=== PATIENT | male | born 1970 | race Caucasian/White ===

== ENCOUNTER 2016-12-02 08:21 | Emergency (ER) | payer BC, OTHER ==
[2016-12-02 08:57] VITALS: BP 145/84
--- NOTE | 2016-12-02 09:10 | UC ---
Throat Pain/Nasal Jamal HPI - HPI Summary HPI Summary: sore throat on /off for 1 week now has swollen gland on ear ache on right side, no fevers, kids with similar issues - History of Current Complaint Chief Complaint: UCGeneralIllness Stated Complaint: SORE THROAT EAR PAIN Time Seen by Provider: 12/02/16 08:52 Hx Obtained From: Patient Onset/Duration: Gradual Onset, Lasting Days, Still Present Severity: Moderate Pain Intensity: 5 - refused pain med Pain Scale Used: 0-10 Numeric Cough: Nonproductive - Allergies/Home Medications Allergies/Adverse Reactions: Allergies Allergy/AdvReac Type Severity Reaction Status Date / Time No Known Allergies Allergy Verified 12/02/16 08:52 PMH/Surg Hx/FS Hx/Imm Hx Previously Healthy: Yes - Surgical History Surgical History: Yes Surgery Procedure, Year, and Place: 1984-knee - Family History Known Family History: Positive: None - Social History Occupation: Employed Full-time - contractor Lives: With Family Alcohol Use: Rare Substance Use Type: None Smoking Status (MU): Light Every Day Tobacco Smoker Type: Cigars Household Exposure Type: Cigars Cessation Counseling: Patient Advised to Stop Review of Systems Constitutional: Negative Skin: Negative Eyes: Negative ENT: Sore Throat, Ear Ache - right Respiratory: Cough Cardiovascular: Negative Gastrointestinal: Negative Genitourinary: Negative Motor: Negative Neurovascular: Negative Musculoskeletal: Negative Neurological: Negative Psychological: Negative All Other Systems Reviewed And Are Negative: Yes Physical Exam Triage Information Reviewed: Yes Appearance: Well-Appearing, No Pain Distress, Well-Nourished Vital Signs: Initial Vital Signs Temp 98.6 F 12/02/16 08:53 Pulse 80 12/02/16 08:53 Resp 18 12/02/16 08:53 BP 145/84 12/02/16 08:53 Pulse Ox 99 12/02/16 08:53 Vital Signs Reviewed: Yes Eye Exam: Normal Eyes: Positive: Conjunctiva Clear ENT Exam: Normal ENT: Positive: Pharyngeal erythema, TMs normal. Negative: Nasal congestion, Nasal drainage, Tonsillar swelling, Tonsillar exudate, Trismus, Muffled/hoarse voice Dental Exam: Normal Neck exam: Normal Neck: Positive: Supple, Nontender, Enlarged Nodes @ - slight right anterior cervical Respiratory Exam: Normal Respiratory: Positive: Chest non-tender, Lungs clear, Normal breath sounds, No respiratory distress, No accessory muscle use Cardiovascular Exam: Normal Cardiovascular: Positive: RRR, No Murmur, Pulses Normal, Brisk Capillary Refill Abdominal Exam: Normal Abdomen Description: Positive: Nontender, No Organomegaly, Soft Bowel Sounds: Positive: Present Musculoskeletal Exam: Normal Musculoskeletal: Positive: Strength Intact, ROM Intact, No Edema Neurological Exam: Normal Neurological: Positive: Alert, Muscle Tone Normal Psychological Exam: Normal Skin Exam: Normal Diagnostics - Laboratory Diagnostic Studies Completed/Ordered: RST(-) Throat Pain/Nasal Course/Dx - Course Assessment/Plan: increase fluids , rst tylenol, ibuprofen Albuterol follow with pcp re-check prn - Differential Dx/Diagnosis Differential Diagnosis/HQI/PQRI: Laryngitis, Pharyngitis, Sinusitis, URI Provider Diagnoses: URI Discharge - Discharge Plan Condition: Stable Disposition: HOME Prescriptions: Albuterol HFA INHALER* [Ventolin HFA Inhaler*] 2 puff INH Q4H PRN #1 mdi PRN Reason: cough Patient Education Materials: Decongestant/Expectorant (By mouth), How to Use a Metered-Dose Inhaler (ED), Upper Respiratory Infection (ED), Viral Syndrome (ED) , Wheezing (ED) Referrals: Gurvinder Bailey MD [Primary Care Provider] - If Needed
== END 2016-12-02 09:59 | disposition home or self-care (01) ==
LOC: UCEAST 08:21
DX: J06.9 Acute upper respiratory infection, unspecified (principal); R03.0 Elevated blood-pressure reading, without diagnosis of hypertension; F17.210 Nicotine dependence, cigarettes, uncomplicated; Z71.6 Tobacco abuse counseling
CPT/HCPCS: 87651; 99212; G0463

== ENCOUNTER 2016-12-28 04:01 | Inpatient (IN) | payer BC ==
[2016-12-28] MEDS ORDERED: Ticagrelor* 90 MG TAB PO ONE (04:04)
[2016-12-28] MEDS ORDERED: Heparin for STEMI(*) 5,000 UNITS/ML 1 ML VIAL IV ONE (04:04)
[2016-12-28] MEDS ORDERED: Midazolam* 1 MG/ML 5 ML VIAL (5 MG) ONE (04:15)
[2016-12-28] MEDS ORDERED: Iohexol 350 (CONTRAST) 200 ML MDV IV ONE (04:15)
[2016-12-28] MEDS ORDERED: fentaNYL* 50 MCG/ML 2 ML VIAL (100 MCG VIAL) ONE (04:15)
[2016-12-28] MEDS ORDERED: nitroGLYCERIN DRIP* 250 ML ONE (04:15)
[2016-12-28] MEDS ORDERED: Heparin 2 UNITS/ML IVPREMIX* 2,000 ML IV ONE (04:15)
[2016-12-28] MEDS ORDERED: Lidocaine 1% INJ* 10 MG/ML 30 ML SDV ONE (04:15)
[2016-12-28 04:19] LABS: Hematocrit 47 % (42-52); Mean Corpuscular HGB Conc 34 g/dl (31-36); Mean Corpuscular Hemoglobin 30 pg (27-31); Mean Corpuscular Volume 88 fL (80-94); Mean Platelet Volume 7 um3 (7.4-10.4); Red Blood Count 5.34 10^6/ul (4.0-5.4); Red Cell Distribution Width 14 % (10.5-15); White Blood Count 15.1 10^3/ul (3.5-10.8)
[2016-12-28] MEDS ORDERED: Morphine INJ* 4 MG/ML 1 ML CARPUJECT ONE (04:19)
[2016-12-28 04:21] LABS: Add Diff/Slide Review? Slide Review Added; Comments Flag Yes
--- NOTE | 2016-12-28 04:25 | ED ---
Trever Brown Anna, scribed for Jesse Maciel MD on 12/28/16 at 0408 . HPI Chest Pain - HPI Summary HPI Summary: Patient is a male BIBA to [facility] presenting with sudden onset of constant, right , anterior chest pain that began this morning at 0315. The patient was sleeping when the pain woke him up. Upon arrival of EMS, patient was diaphoretic with some dyspnea. He expressed pain down his left arm and into his back. EMS administered 2 sublingual Nitroglycerin and 324 mg Aspirin. Initial BP upon EMS arrival was 154/104. NKDA. FHx CAD in mother and father, both around age 50. STEMI called at 0353. - History of Current Complaint Hx Obtained From: Patient Onset/Duration: Started Minutes Ago, Still Present Initial Severity: Moderate Current Severity: Moderate - Allergy/Home Medications Allergies/Adverse Reactions: Allergies Allergy/AdvReac Type Severity Reaction Status Date / Time No Known Allergies Allergy Verified 12/02/16 08:52 PMH/Surg Hx/FS Hx/Imm Hx Cardiovascular History: Reports: Hx Coronary Artery Disease - Surgical History Surgery Procedure, Year, and Place: 1983- - Family History Known Family History: Positive: Cardiac Disease - Social History Lives: With Family Alcohol Use: Rare Substance Use Type: Reports: None Smoking Status (MU): Light Every Day Tobacco Smoker Type: Cigars Review of Systems Positive: Skin Diaphoresis Positive: Chest Pain Positive: Other - dyspnea Positive: Myalgia - CP radiates to left arm, back All Other Systems Reviewed And Are Negative: Yes Physical Exam Triage Information Reviewed: Yes Vital Signs On Initial Exam: Temp Pulse Resp BP Pulse Ox 96.9 F 77 16 128/79 96 12/28/16 04:07 12/28/16 04:07 12/28/16 04:07 12/28/16 04:07 12/28/16 04:07 Vital Signs Reviewed: Yes Appearance: Positive: Well-Appearing, Pain Distress - mild discomfort Skin: Positive: Warm Eyes: Positive: [place] ENT: Positive: Hearing grossly normal Neck: Positive: Supple Respiratory/Lung Sounds: Positive: Clear to Auscultation, Breath Sounds Present Cardiovascular: Positive: RRR Abdomen Description: Positive: Nontender, Soft Bowel Sounds: Positive: Present Musculoskeletal: Positive: Strength/ROM Intact Neurological: Positive: Alert, Oriented to Person Place, Time, Normal Gait Psychiatric: Positive: Affect/Mood Appropriate Diagnostics - Vital Signs Vital Signs Temp Pulse Resp BP Pulse Ox 12/28/16 04:07 96.9 F 77 16 128/79 96 - Laboratory Lab Results: Lab Results 12/28/16 Range/Units 04:07 WBC 15.1 H (3.5-10.8) 10^3/ul RBC 5.34 (4.0-5.4) 10^6/ul Hgb 16.0 (14.0-18.0) g/dl Hct 47 (42-52) % MCV 88 (80-94) fL MCH 30 (27-31) pg MCHC 34 (31-36) g/dl RDW 14 (10.5-15) % Plt Count 311 (150-450) 10^3/ul MPV 7 L (7.4-10.4) um3 Neut % (Auto) 52.6 (38-83) % Lymph % (Auto) 34.2 (25-47) % [place] % (Auto) 8.5 (1-9) % Eos % (Auto) 4.6 (0-6) % Baso % (Auto) 0.1 (0-2) % Absolute Neuts (auto) 8.0 H (1.5-7.7) 10^3/ul Absolute Lymphs (auto) 5.2 H (1.0-4.8) 10^3/ul Absolute Monos (auto) 1.3 H (0-0.8) 10^3/ul Absolute Eos (auto) 0.7 H (0-0.6) 10^3/ul Absolute Basos (auto) 0 (0-0.2) 10^3/ul Absolute Nucleated RBC 0.02 10^3/ul Nucleated RBC % 0.1 Result Diagrams: 12/28/16 04:07 12/28/16 04:07 Lab Statement: Any lab studies that have been ordered have been reviewed, and results considered in the medical decision making process. - Radiology CXR Xray Interpretation: No Acute Changes Radiology Interpretation Completed By: ED Physician - EKG 0354 Cardiac Rate: NL - 73 bpm EKG Rhythm: Sinus Rhythm EKG Interpretation: ACUTE INFERIOR WALL NH, II, III, aVF Chest Pain Course/Dx - Course Assessment/Plan: Patient is a male BIBA to [facility] presenting with sudden onset of constant, right, anterior chest pain that began this morning at 0315. The patient was sleeping when the pain woke him up. Upon arrival of EMS, patient was diaphoretic with some dyspnea. He expressed pain down his left arm and into his back. EMS administered 2 sublingual Nitroglycerin and 324 mg Aspirin. Initial BP upon EMS arrival was 154/104. NKDA. FHx CAD in mother and father, both around age 50. STEMI called at 0353. CXR reveals no acute disease. Labs reveal troponin of .18, lactic acid of 2.1, WBC of 15.1. Patient admitted to [facility] under care of Dr. Holman. - Diagnoses Provider Diagnoses: STEMI (ST elevation myocardial infarction) During the Visit The Following Alert/Code Occurred: STEMI - Provider Notifications Instructed by Provider To: Admit As Inpatient - Critical Care Time Critical Care Time: 30-74 min Discharge - Discharge Plan Condition: Guarded Disposition: ADMITTED TO [facility] The documentation as recorded by the Trever browne Anna accurately reflects the service I personally performed and the decisions made by , Jesse Maciel MD.
[2016-12-28] MEDS ORDERED: Heparin VIAL(*) 5000 UNITS/ML VIAL (FIVE THOUSAND) ONE (04:26)
[2016-12-28 04:32] LABS: Albumin 3.9 g/dL (3.2-5.2); BUN/Creatinine Ratio 19.5 (8-20); Calcium 8.9 mg/dL (8.6-10.3); EGFR African American 138.7 (>60); EGFR Non-African American 107.8 (>60); Globulin 2.8 g/dL (2-4); Potassium 3.6 mmol/L (3.5-5.0); Total Bilirubin 0.4 mg/dL (0.2-1.0); Total Protein 6.7 g/dL (6.4-8.9)
[2016-12-28 04:40] LABS: Troponin I 0.18 ng/mL (<0.04)
[2016-12-28] MEDS ORDERED: Bivalirudin(*) 250 MG VIAL ONE (05:02)
[2016-12-28] MEDS ORDERED: Potassium Chloride LIQUID* 20 MEQ PACKET ONE (05:58)
[2016-12-28] MEDS ORDERED: Nitroglycerin TAB 0.4 MG* 0.4 MG TAB SL PRN (07:07)
[2016-12-28] MEDS ORDERED: Zolpidem TAB* 5 MG PO PRN (07:07)
[2016-12-28] MEDS ORDERED: oxyCODONE/Acetamin 5/325 MG* TAB PO PRN (07:07)
[2016-12-28] MEDS ORDERED: Ondansetron INJ* 2 MG/ML VIAL IV PRN (07:07)
[2016-12-28] MEDS ORDERED: fentaNYL* 50 MCG/ML 2 ML VIAL (100 MCG VIAL) IV PRN (07:07)
[2016-12-28] MEDS ORDERED: Acetaminophen TAB* 325 MG PO PRN (07:07)
[2016-12-28] MEDS ORDERED: Docusate CAP* 100 MG PO PRN (07:07)
[2016-12-28] MEDS ORDERED: NS 0.9% 1000 ML* 1,000 ML IV SCH (07:15)
--- NOTE | 2016-12-28 07:40 | RAD ---
INDICATION: Chest pain. COMPARISON: There are no prior studies available for comparison. TECHNIQUE: A portable view of the chest was obtained. FINDINGS: Cardiac and mediastinal contours appear to be within normal limits. The lungs are clear. No pleural effusion is seen. IMPRESSION: NO EVIDENCE FOR ACUTE DISEASE.
[2016-12-28] MEDS: Atorvastatin* 80 MG TAB PO SCH ×2 (08:08→20:56)
[2016-12-28] MEDS: Aspirin Low Dose CHEW TAB* 81 MG PO SCH (08:08)
[2016-12-28 08:30] LABS: Hematocrit 46 % (42-52); Hemoglobin 15.6 g/dl (14.0-18.0); Mean Corpuscular HGB Conc 34 g/dl (31-36); Mean Corpuscular Hemoglobin 30 pg (27-31); Mean Corpuscular Volume 88 fL (80-94); Mean Platelet Volume 7 um3 (7.4-10.4); Red Blood Count 5.23 10^6/ul (4.0-5.4); Red Cell Distribution Width 14 % (10.5-15); White Blood Count 19.6 10^3/ul (3.5-10.8)
[2016-12-28 08:45] LABS: Albumin 3.9 g/dL (3.2-5.2); BUN/Creatinine Ratio 19.4 (8-20); Calcium 9.2 mg/dL (8.6-10.3); EGFR African American 149.8 (>60); EGFR Non-African American 116.5 (>60); Globulin 2.8 g/dL (2-4); HDL Cholesterol 25.7 mg/dL; Potassium 4.3 mmol/L (3.5-5.0); Total Bilirubin 0.4 mg/dL (0.2-1.0); Total Protein 6.7 g/dL (6.4-8.9)
[2016-12-28] MEDS ORDERED: Metoprolol Tartrate TAB* 25 MG PO SCH ×2 (09:00)
[2016-12-28 11:22] LABS: Troponin I > 85.00 ng/mL (<0.04)
[2016-12-28 11:34] LABS: Creatine Kinase 3183 U/L (10-223)
--- NOTE | 2016-12-28 12:27 | HP ---
ADMISSION HISTORY AND PHYSICAL: DATE OF ADMISSION: 12/28/16 CHIEF COMPLAINT: Chest discomfort with ST segment elevation inferoposterior wall myocardial infarction. HISTORY OF PRESENT ILLNESS: The patient is a 46-year-old white male with no prior known history of coronary artery disease. He was in his usual state of health until and woke up at 2:30 in the morning with chest discomfort going up towards his arms. Mild diaphoresis. He woke his at 3 o' clock, they called EMS and when EMS came they performed an EKG, which demonstrated an acute ST segment elevation inferior posterior wall myocardial infarction. A STEMI alert was called. On arrival in the emergency room, he was still having active symptoms. He received 6000 units of heparin in addition to 180 mg of Brilinta and already received full dose aspirin. The risks and benefits were explained and he wished to proceed emergently to cardiovascular laboratory for acute intervention. Coronary risk factors included negative history of hypertension, negative diabetes, no increased history of cholesterol. He does smoke. ALLERGIES: No known allergies. FAMILY HISTORY: He has a family history significant for coronary artery disease with both mother and father who had it early in life and succumbed to it. REVIEW OF SYSTEMS: Pertinent to proceeding to cardiovascular laboratory. No history of hematochezia, hematemesis, or hematuria. No history of TIA or stroke. No history of dye allergy or renal insufficiency. PHYSICAL EXAMINATION VITAL SIGNS: When I saw him revealed blood pressure 128/79, pulse 77, temperature 96.9, respirations 16, O2 saturation 96%. NECK: Supple. No increased JVP. Carotid without bruit. HEENT: Conjunctivae are pink. Sclerae are clear. Mouth revealed moist mucosa. LUNGS: Reveal no accessory muscle usage. There was good excursion. Lungs were clear to A and P. HEART: Revealed no visible heaves, no palpable heaves or thrills. Normal S1, S2 with no S3 or S4 gallop. No significant systolic or diastolic murmur. ABDOMEN: Soft, nontender without organomegaly. EXTREMITIES: Without clubbing, cyanosis, or avril pitting edema. NEUROLOGIC: The patient is alert and oriented with normal mentation. MUSCULOSKELETAL: The patient is with normal gait. PSYCHIATRIC: The patient is with normal affect. LABORATORY DATA: Electrocardiogram revealed ST segment elevation inferiorly with reciprocal changes and ST segment depression anteriorly. The only laboratory results back were hemoglobin of 11, hematocrit of 47, white count 15, 000, platelets 311,000. All other labs were pending at the time of proceeding to the cardiovascular laboratory. OVERALL ASSESSMENT: The patient presents with an inferoposterior ST segment elevation myocardial infarction. He has already received heparin, Brilinta, and aspirin therapy. We will take him emergently to the cardiovascular lab and adjust management pending results. CC: Dr. Gurvinder Bailey * [id number]/[facility] #: [id number] MTDD
[2016-12-28] MEDS: Nicotine PATCH 14 MG/24 HR* PATCH TRANSDERM SCH (13:22)
[2016-12-28] MEDS: Metoprolol Tartrate TAB* 25 MG PO SCH ×2 (13:22→20:56)
[2016-12-28] MEDS: Ticagrelor* 90 MG TAB PO SCH (15:40)
[2016-12-28 17:08] LABS: Troponin I > 85.00 ng/mL (<0.04)
[2016-12-28] MEDS ORDERED: Al Hydrox/Mg Hydrox/Simet LIQ* 30 ML UDC PO PRN (17:34)
[2016-12-28] MEDS: Omeprazole CAP* 20 MG PO SCH (17:56)
[2016-12-28 19:10] LABS: Creatine Kinase 2273 U/L (10-223)
[2016-12-28] MEDS: Nicotine Patch Removal NOTE PATCH OFF SCH (21:27)
--- NOTE | 2016-12-28 23:50 | CATH ---
CARDIAC CATHETERIZATION AND INTERVENTIONAL REPORT: DATE OF PROCEDURE: 12/28/16 - ROOM #ICU-06 INDICATION FOR PROCEDURE: The patient with acute ST-segment elevation inferior posterior wall myocardial infarction. PROCEDURE: Coronary arteriography, primary stenting of the proximal circumflex and mid circumflex area utilizing a 4.0 x 24 mm long Synergy drug-eluting stent overlapped in the midportion to distal portion with a 4.0 x 28 mm long Synergy drug-eluting stent postdilated to 4.2 mm, left heart catheterization, left ventriculography. DESCRIPTION OF PROCEDURE: The patient was interviewed and examined in the emergency room where the risks and benefits were explained. He understood and wished to proceed. He was brought to the cardiovascular laboratory where a formal time-out was performed. The patient was prepped and draped in a sterile fashion. Right groin area was incised with 1% lidocaine. The right femoral artery was cannulated, and a 6.5 curve Merit Prelude sheath was placed. Coronary arteriography was performed using a 5-Congolese 4-Ann-Marie left coronary catheter and a 5-Congolese 4-Ann-Marie right coronary catheter. Of note, an ACT was checked and found to be subtherapeutic and as such, the patient received an Angiomax bolus and Angiomax drip was started. Guiding views were obtained with a 6- Congolese VL4 curve guide catheter. An All Star wire was advanced down the circumflex artery. Primary stenting was performed utilizing a 4.0 x 24 mm long Synergy drug-eluting stent. Following this, a Pronto V4 extraction catheter was utilized to perform thrombectomy. The distal stent, 4.0 x 28 mm long Synergy drug-eluting stent, was deployed and post deployment inflations were made to the whole length of stenting area utilizing a 4.0 x 15 mm long balloon inflated to high pressures. Following this, views were obtained in multiple angles. After this, central aortic pressure was recorded using an angled pigtail catheter advanced the ascending aorta. The catheter was then passed across the aortic valve into the left ventricle where left ventricular pressure was recorded. Left ventriculography was performed using a total of 24 cc of Omnipaque dye at a rate of 12 cc per second. The catheter was then pulled back across the aortic valve to recheck gradient. At the end of the case, an injection was made into the right femoral sheath to assess the eligibility to utilize a vascular closure device and as such, it was acceptable for this and a /7 Congolese Mynx closure device was deployed with good hemostasis. The total contrast used was 200 cc of Omnipaque dye. The radiation exposure included 11.6 minutes of fluoro time. The air kerma radiation was 2085 milligray. The DAP radiation was 12,532 microgray per sq. m. RESULTS: HEMODYNAMIC DATA: Left heart catheterization - central aortic pressure was recorded at 94/53 with a mean of 74, left ventricular pressure 90 over left ventricular end- diastolic pressure of 16. LEFT VENTRICULOGRAPHY: Performed in the DONIS projection revealed mild global left ventricular hypokinesis, overall EF appeared to be low normal range of 50%. CORONARY ARTERIOGRAPHY: A. Left coronary artery: 1. Left main - no significant stenosis seen. 2. Left anterior descending artery - left anterior descending artery had mild 10% to 15% narrowing proximally. The midportion of the vessel had a 70% to 75% lesion in its midportion. The rest of the LAD had mild luminal irregularities, but no critical stenosis. 3. Circumflex artery - totally occluded in its proximal portion. On reconstitution, it supplied several thin first, second, and third obtuse marginal branches with moderate-sized trifurcating low-lying obtuse marginal branch supplying the low posterolateral inferior apical wall. INTERVENTION INTO PROXIMAL AND MID CIRCUMFLEX: Successful reconstitution of 100% occluded proximal circumflex with stenting of the proximal segment with a 4.0 x 24 mm long Synergy drug-eluting stent overlapped distally with a 4.0 x 28 mm long Synergy drug-eluting stent postdilated to high pressures, obtaining LUKE-III flow, no dissection seen, and less than 5% residual stenosis. OVERALL ASSESSMENT: Interruption of acute inferior posterior wall myocardial infarction with totally occluded circumflex with stenting of both proximal and mid segment as defined. Of note, there is still residual disease involving the mid LAD with a 70% to 75% lesion. This will be addressed at a later time for consideration of ischemic burden from this lesion. Aggressive risk factor management with high- dose statin therapy in addition to beta zac and aspirin and Brilinta therapy will be pursued. Smoking cessation is paramount to his further cardiac care. CC: Dr. Gurvinder Bailey * [id number]/[facility] #: [id number] [facility] MEDICAL CENTERYaima
[2016-12-28 23:55] LABS: Troponin I 60.92 ng/mL (<0.04)
[2016-12-29 06:14] LABS: Hematocrit 48 % (42-52); Hemoglobin 16.1 g/dl (14.0-18.0); Mean Corpuscular HGB Conc 34 g/dl (31-36); Mean Corpuscular Hemoglobin 30 pg (27-31); Mean Corpuscular Volume 87 fL (80-94); Mean Platelet Volume 7 um3 (7.4-10.4); Red Blood Count 5.45 10^6/ul (4.0-5.4); Red Cell Distribution Width 14 % (10.5-15)
[2016-12-29 06:16] LABS: Add Diff/Slide Review? Slide Review Added
[2016-12-29 06:43] LABS: Albumin 3.9 g/dL (3.2-5.2); BUN/Creatinine Ratio 13.5 (8-20); Calcium 9.3 mg/dL (8.6-10.3); EGFR African American 145.2 (>60); EGFR Non-African American 112.9 (>60); Globulin 2.9 g/dL (2-4); Potassium 3.9 mmol/L (3.5-5.0); Total Bilirubin 0.7 mg/dL (0.2-1.0); Total Protein 6.8 g/dL (6.4-8.9)
[2016-12-29] MEDS: Ticagrelor* 90 MG TAB PO SCH ×2 (07:34→16:19)
[2016-12-29] MEDS: Metoprolol Tartrate TAB* 25 MG PO SCH ×2 (09:05→14:10)
[2016-12-29] MEDS: Omeprazole CAP* 20 MG PO SCH (09:05)
[2016-12-29] MEDS: Nicotine PATCH 14 MG/24 HR* PATCH TRANSDERM SCH (09:05)
[2016-12-29] MEDS: Aspirin Low Dose CHEW TAB* 81 MG PO SCH (09:05)
--- NOTE | 2016-12-29 11:59 | ECHO ---
Patient: JASON BANUELOS [facility] Rec#: [id number] : 1970 Date: 12/29/2016 Age: 46y Height: 182.9 cm / 72.0 in Weight: 104.3 kg / 229.9 lbs Sex: M BSA: 2.3 Room#: ICU 6 Admit Date#: 12/28/2016 Type: Inpatient Referring: Edmundo Holman MD Reading: Phil Hoskins MD Hogshead Mat Assembler: Ayana Allen RN RDCS CC: Gurvinder Bailey MD Transthoracic Echocardiogram Indication: STEMI, S/P PCI BP: 109/74 HR: 63 Rhythm: NSR Findings History: Smoker Technical Comments: The study is technically limited due to patient body habitus. The study is technically limited due to the patient's smoking history. Completed at 0920. Left Ventricle: The left ventricular chamber size is normal. There is no left ventricular hypertrophy. There are multiple regional wall motion abnormalities. There is moderately decreased left ventricular systolic function. The estimated ejection fraction is 35-40%. Abnormal left ventricular diastolic filling is observed, consistent with impaired relaxation. The mid inferolateral, mid inferior, and apical inferior wall segments are hypokinetic (score 2). The apical septal wall segment is akinetic (score 3). Overall wallmotion score index is 2.00 Left Atrium: The left atrium is slightly dilated. Right Ventricle: The right ventricular cavity size is normal. The right ventricular global systolic function is mildly reduced. Right Atrium: The right atrium is slightly dilated. Aortic Valve: The aortic valve is trileaflet. The aortic valve leaflets are mildly thickened. There is a trace of aortic regurgitation. There is no evidence of aortic stenosis. Mitral Valve: Mild mitral annular calcification present. The mitral valve leaflets are mildly thickened. There is a trace of mitral regurgitation. There is no evidence of mitral stenosis. Tricuspid Valve: The tricuspid valve leaflets are normal. There is trace tricuspid regurgitation. Unable to estimate the right ventricular systolic pressure. Pulmonic Valve: The pulmonic valve appears normal. There is a trace pulmonic regurgitation. There is no pulmonic stenosis. Pericardium: There is no significant pericardial effusion. A pericardial fat pad is visualized. Aorta: There is no dilatation of the ascending aorta. There is no dilatation of the aortic arch. There is no dilation of the aortic root. Pulmonary Artery: The main pulmonary artery appears normal. Venous: The inferior vena cava appears normal in size. There is a greater than 50% respiratory change in the inferior vena cava dimension. Conclusions There is moderately decreased left ventricular systolic function. The estimated ejection fraction is 35-40%. The mid inferolateral, mid inferior, and apical inferior wall segments are hypokinetic (score 2). The apical septal wall segment is akinetic (score 3). The right ventricular global systolic function is mildly reduced. There is a trace of aortic regurgitation. There is a trace of mitral regurgitation. There is trace tricuspid regurgitation. Unable to estimate the right ventricular systolic pressure. There is no significant pericardial effusion. There is no dilatation of the ascending aorta. Measurements Name Value Normal Range RVDdMajor (2D) 3.1 cm (2.2 - 4.4) RAd ISD 4CH 5.3 cm (3.4 - 4.9) RA (A4C)W 3.4 cm (2.9 - 4.6) IVSd (2D) 0.9 cm (0.6 - 1) LVPWd (2D) 0.9 cm (0.6 - 1) LVIDd (2D) 5.2 cm (3.6 - 5.4) LVIDs (2D) 4.1 cm - LV FS (2D) 21 % (25 - 45) Aortic Annulus 2.4 cm (1.4 - 2.6) Ao root diameter (2D) 3.5 cm (2.1 - 3.5) Ascending Ao 3.4 cm (2.1 - 3.4) Aortic arch 2.9 cm (1.8 - 3.4) LA dimension (AP) 2D 3.7 cm (2.3 - 3.8) LAd ISD 4CH 5.4 cm (2.9 - 5.3) LA ISD 4CH W 3.5 cm (2.5 - 4.5) Name Value Normal Range LA ESV SP 4CH (A/L) 25 ml - LA ESV SP 2CH (A/L) 33 ml - LA ESV BP (A/L) 32 ml - LA ESV BP (A/L) index 14 ml/m2 - LA ESV SP 4CH (MOD) 24 ml - LA ESV SP 2CH (MOD) 31 ml - Name Value Normal Range MV E-wave Vmax 0.62 m/sec - MV deceleration time 240 msec - MV A-wave Vmax 1.1 m/sec - MV E:A ratio 0.6 ratio - LV septal e' Vmax 0.07 m/sec - LV lateral e' Vmax 0.1 m/sec - LV E:e' septal ratio 8.9 ratio - LV E:e' lateral ratio 6.2 ratio - Name Value Normal Range AV Vmax 1.3 m/sec - AV VTI 25.6 cm - AV peak gradient 7 mmHg - AV mean gradient 4 mmHg - LVOT Vmax 1.1 m/sec - LVOT VTI 19.8 cm - ILA Vmax 0.51 m/sec - Name Value Normal Range IVC diameter 1.4 cm - Name Value Normal Range PV Vmax 0.86 m/sec - Wallmotion BAS Not Seen BA Not Seen BAL Not Seen CHRISTIAN Not Seen BI Not Seen BIS Not Seen MAS Not Seen MA Not Seen MAL Not Seen MIL Hypokinetic PR Hypokinetic MIS Not Seen Akinetic AA Not Seen AL Normal AI Hypokinetic APEX Not Seen
[2016-12-29] MEDS: Captopril TAB* 12.5 MG PO SCH ×2 (16:19→21:25)
[2016-12-29] MEDS ORDERED: Captopril TAB* 12.5 MG PO SCH (21:00)
[2016-12-29] MEDS: Metoprolol Tartrate TAB* 50 mg PO SCH (21:23)
[2016-12-29] MEDS: Atorvastatin* 80 MG TAB PO SCH (21:23)
[2016-12-29] MEDS: Nicotine Patch Removal NOTE PATCH OFF SCH (21:26)
[2016-12-30] MEDS: Ticagrelor* 90 MG TAB PO SCH ×2 (06:31→17:23)
[2016-12-30] MEDS: Captopril TAB* 12.5 MG PO SCH ×3 (10:13→21:46)
[2016-12-30] MEDS: Metoprolol Tartrate TAB* 50 mg PO SCH ×2 (10:13→21:45)
[2016-12-30] MEDS: Omeprazole CAP* 20 MG PO SCH (10:13)
[2016-12-30] MEDS: Aspirin Low Dose CHEW TAB* 81 MG PO SCH (10:13)
[2016-12-30] MEDS: Nicotine PATCH 14 MG/24 HR* PATCH TRANSDERM SCH (10:14)
[2016-12-30] MEDS: Atorvastatin* 80 MG TAB PO SCH (21:45)
[2016-12-30] MEDS: Nicotine Patch Removal NOTE PATCH OFF SCH (21:48)
[2016-12-31] MEDS: Ticagrelor* 90 MG TAB PO SCH (06:24)
[2016-12-31 07:41] VITALS: BP 107/73
[2016-12-31] MEDS ORDERED: Lisinopril TAB* 10 MG PO SCH (09:00)
[2016-12-31] MEDS ORDERED: Metoprolol Succinate XL TAB* 100 MG PO SCH (09:00)
[2016-12-31] MEDS: Omeprazole CAP* 20 MG PO SCH (09:16)
[2016-12-31] MEDS: Aspirin Low Dose CHEW TAB* 81 MG PO SCH (09:16)
[2016-12-31] MEDS: Nicotine PATCH 14 MG/24 HR* PATCH TRANSDERM SCH (09:17)
[2016-12-31] MEDS ORDERED: CMC:Prasugrel (NF) 10 MG PO SCH (11:00)
--- NOTE | 2017-01-01 01:01 | DS ---
DISCHARGE SUMMARY: DATE OF ADMISSION: 12/28/16 DATE OF DISCHARGE: 12/31/16 DISCHARGE DIAGNOSES: 1. Inferior ST-elevation infarct. 2. Hyperglycemia. 3. Family history of premature coronary disease. 4. Tobacco use. 5. Hyperlipidemia. CONDITION ON DISCHARGE: Stable. PROCEDURES: Cardiac cath, stent placement, Dr. Holman, 12/28/16, proximal circumflex 4.0 x 24 Synergy drug-eluting stent, distal 4.0 x 28 Synergy drug- eluting stent. Echocardiogram. DISCHARGE MEDICATIONS: 1. Aspirin 81 mg daily. 2. Lipitor 80 mg daily. 3. Lisinopril 10 mg daily. 4. Toprol-XL 100 mg daily. 5. Nitroglycerin 0.4 sublingual p.r.n. 6. Effient 10 mg daily. FOLLOWUP: Dr. Smith next week, to establish primary care with Dr. Varela's office including followup of hypoglycemia. DISCHARGE INSTRUCTIONS: No strenuous exertion for 3 days, to walk 30 minutes daily. Do not smoke. Wound care shower only for 3 days. HISTORY: See H and P. DIAGNOSTIC STUDIES/LAB DATA: CBC on the remained stable with a white count of 16,000, hemoglobin 16.1. Chemistries post PCR remained stable with a creatinine of 0.74 on December 29, normal electrolytes. His fasting blood sugars were elevated in the 120 to 130s. Hemoglobin A1c was elevated at 6.5. There is a family history of diabetes, but not a previous diagnosis of diabetes. His total CPK peaked at 3183, MB peaked at greater than 298, troponin peaked at greater than 85 consistent with a moderate-sized infarct. Cholesterol was 186, triglycerides 154, LDL 130, HDL 25.7 on no statin. His BNP was normal at 15. EKG, post revascularization, has remained stable, on December 30 showed QS in aVF , very minimal fraction of a millimeter ST elevation in II with terminal T-wave inversion in the inferior leads, and minimal right precordial J point and ST depression with somewhat slow R wave progression. He had T-wave inversion in V6. All consistent with post infarct EKG changes. Echo, 12/29/16, reported EF of 35% to 40% with mid inferior, inferolateral, and apical inferior hypokinesis. HOSPITAL COURSE: He presented with acute inferior wall ST-elevation infarct, underwent catheterization by Dr. Holman. See his report for details. He received two drug-eluting stents in the circumflex. LV gram showed low normal in the 50s. He had no significant left main, had moderate mid LAD stenosis, which will be followed as an outpatient with a stress test, and occlusion of the circumflex proximally. Post PCI, he had a LUKE-3 flow. Subsequent to revascularization, he gradually ambulated, has not had arrhythmias, heart failure, or recurrence of angina. There were no groin complications. He is tolerating beta blockade, after load reduction, dual-antiplatelet therapy, as well as high-dose statin. He received full discharge instructions including cardiac rehab. The plan is for an outpatient stress test to assess his LAD, functional significance during his convalescence. He was noted to have elevated fasting sugars as well as elevated hemoglobin A1c, he will follow that with Dr. Varela's office after he establishes. CC: Dr. Jaya Smith; Dr. Varela* [id number]/CPS #: [id number] MTDD
--- NOTE | 2017-03-04 11:51 | CATH ---
CC: Dr. Gurvinder Bailey; Dr. Jaya Smith CARDIAC CATH REPORT: DATE OF PROCEDURE: 12/28/16 ADDENDUM: Of note, the right coronary artery was not commented on, on the prior report, although it was visualized. The right coronary artery was a right dominant vessel supplying the PDA and thin p osterior left ventricular branches. 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 No critical lesions were noted throughout the v essel. [id number]/[facility] #: [id number]
== END 2016-12-31 13:04 | disposition home or self-care (01) | DRG 174 ==
LOC: ED 04:01 → CHICATH 04:28 → ICU 05:51 → SSU 12-29 17:10 → MEDTELE 12-29 17:12
PROVIDERS: ADMIT Internal Medicine Cardiovascular Disease; ATTEND Internal Medicine Cardiovascular Disease
PROC: 027035Z Dilation of Coronary Artery, One Artery with Two Drug-eluting Intraluminal Devices, Percutaneous Approach (ICD-10-PCS; principal; 2016-12-28)
PROC: B2111ZZ Fluoroscopy of Multiple Coronary Arteries using Low Osmolar Contrast (ICD-10-PCS; 2016-12-28)
PROC: B2151ZZ Fluoroscopy of Left Heart using Low Osmolar Contrast (ICD-10-PCS; 2016-12-28)
PROC: 4A023N7 Measurement of Cardiac Sampling and Pressure, Left Heart, Percutaneous Approach (ICD-10-PCS; 2016-12-28)
PROC: 02C03ZZ Extirpation of Matter from Coronary Artery, One Artery, Percutaneous Approach (ICD-10-PCS; 2016-12-28)
PROC: 3E03317 Introduction of Other Thrombolytic into Peripheral Vein, Percutaneous Approach (ICD-10-PCS; 2016-12-28)
DX: I21.11 ST elevation (STEMI) myocardial infarction involving right coronary artery (principal); E78.5 Hyperlipidemia, unspecified; I25.10 Atherosclerotic heart disease of native coronary artery without angina pectoris; F17.210 Nicotine dependence, cigarettes, uncomplicated; R73.9 Hyperglycemia, unspecified; Z82.49 Family history of ischemic heart disease and other diseases of the circulatory system; Z72.89 Other problems related to lifestyle; Z79.82 Long term (current) use of aspirin; Z79.01 Long term (current) use of anticoagulants
CPT/HCPCS: 36415; 71010; 80053; 80061; 82550; 82553; 83036; 83605; 83721; 83874; 83880; 84484; 85025; 85610; 85730; 86850; 86900; 86901; 87641; 93005; 93306; 99406; A9270-GY; C1725; C1757; C1760; C1769; C1876; C1887; C9606-LC; J0583; J1644; J2250; J2270; J3010

== ENCOUNTER 2018-10-19 09:40 | Emergency (ER) | payer BC ==
[2018-10-19 10:16] LABS: ABS Basophils 0.1 10^3/ul (0-0.2); ABS Eosinophils 0.4 10^3/ul (0-0.6); ABS Lymphocytes 2.5 10^3/ul (1.0-4.8); ABS Neutrophils 7.8 10^3/ul (1.5-7.7); ABS Nucleated RBC 0 10^3/ul; Eosinophil % 3.1 %; Hematocrit 48 % (42-52); Hemoglobin 15.9 g/dl (14.0-18.0); Lymphocyte % 21.1 %; Mean Corpuscular HGB Conc 33 g/dl (31-36); Mean Corpuscular Hemoglobin 31 pg (27-31); Mean Corpuscular Volume 92 fL (80-94); Nucleated Red Blood Cells % 0.2; Platelet Count 284 10^3/ul (150-450); Red Blood Count 5.18 10^6/ul (4.00-5.40); Red Cell Distribution Width 14 % (10.5-15); White Blood Count 11.7 10^3/ul (3.5-10.8)
--- NOTE | 2018-10-19 10:22 | ED ---
HPI Chest Pain - HPI Summary HPI Summary: Patient presents with right-sided chest pain which started 5 days ago. He reports he was performing laborous activity the day before with overhead reaching and lifting. Noticed pain in the morning at the base of the right pack and discomfort between his shoulder blades. This was worse with palpation as well as arm movements. Pain also seemed to be worse with lying, better with standing and being up moving around. He denies shortness of breath, diaphoresis , jaw pain, arm pain/numbness/tingling, abdominal pain, nausea, vomiting, fatigue, swelling into extremities. He has not tried anything for this pain until this morningtook nitroglycerin 40 minutes ago. This may be helping as he has less pain with lying at this point in time. Denies side effects such as headache and admits she's never taken nitroglycerin before. History of MD with CAD and stent placement. He takes a beta zac, statin, anticoagulant plus aspirin and lisinopril. No issues since. Follows up with broadband engineer annually. Last stress test was over a year ago. He denies recent reports of fatigue, dyspnea on exertion or difficulty completing tasks as usual. He is quite active in his daily life with chores, etc. Continues to smoke cigars daily. ETOH rare. Illicit drug use - none. Reports he didn't come in right away becuase this doesn't feel like previous cardiac sx and didn't think it was cardiac related - thought it was SHAUNA d/t activities and sx. - History of Current Complaint Chief Complaint: EDChestPainROMI Time Seen by Provider: 10/19/18 10:04 Hx Obtained From: Patient, Family/Double Needle Stitcher - Pain Intensity: 5 - Additional Pertinent History Primary Care Physician: [id number] - Allergy/Home Medications Allergies/Adverse Reactions: Allergies Allergy/AdvReac Type Severity Reaction Status Date / Time No Known Allergies Allergy Verified 12/02/16 08:52 PMH/Surg Hx/FS Hx/Imm Hx Previously Healthy: Yes Endocrine/Hematology History: Reports: Hx Anticoagulant Therapy Denies: Hx Diabetes, Hx Thyroid Disease Cardiovascular History: Reports: Hx Angina, Hx Coronary Artery Disease - stent placed, Hx Hypercholesterolemia, Hx Hypertension, Hx Myocardial Infarction Denies: Hx Valvular Heart Disease Respiratory History: Denies: Hx Asthma, Hx Chronic Obstructive Pulmonary Disease (COPD) GI History: Denies: Hx Gastroesophageal Reflux Disease Musculoskeletal History: Denies: Hx Arthritis - Surgical History Surgery Procedure, Year, and Place: 1983-knee Hx Anesthesia Reactions: No - Immunization History Date of Tetanus Vaccine: unk Date of Influenza Vaccine: unk Infectious Disease History: No Infectious Disease History: Denies: Traveled Outside the [place] in Last 30 Days - Family History Known Family History: Positive: Cardiac Disease - family cardiac in 50's - Social History Lives: With Family Alcohol Use: Rare Hx Substance Use: No Substance Use Type: Reports: None Hx Tobacco Use: Yes Smoking Status (MU): Current Every Day Smoker - cigars Type: Cigars Review of Systems Constitutional: Negative Negative: Fever, Chills, Fatigue Eyes: Negative ENT: Negative Positive: Chest Pain. Negative: Palpitations Respiratory: Negative Gastrointestinal: Negative Positive: no symptoms reported Positive: Myalgia Skin: Negative Neurological: Negative Psychological: Normal All Other Systems Reviewed And Are Negative: Yes Physical Exam Triage Information Reviewed: Yes Vital Signs On Initial Exam: Initial Vitals Temp Pulse Resp BP Pulse Ox 97.5 F 70 18 126/74 95 10/19/18 09:49 10/19/18 09:49 10/19/18 09:49 10/19/18 09:49 10/19/18 09:49 Vital Signs Reviewed: Yes Appearance: Positive: Well-Appearing, No Pain Distress, Well-Nourished Skin: Positive: Warm, Skin Color Reflects Adequate Perfusion, Dry - no erythema , no ecchymosis, no lesions over affected area Head/Face: Positive: Normal Head/Face Inspection Eyes: Positive: Normal, EOMI, Conjunctiva Clear ENT: Positive: Normal ENT inspection, Hearing grossly normal, Pharynx normal Neck: Positive: Supple, Nontender Respiratory/Lung Sounds: Positive: Clear to Auscultation, Breath Sounds Present. Negative: Rales, Rhonchi, Wheezes Cardiovascular: Positive: Normal, RRR, S1, S2. Negative: Murmur, Rub, Leg Edema Left, Leg Edema Right Abdomen Description: Positive: No Organomegaly, Soft, Other: - tender across upper abdomen at junction of diaphragm Bowel Sounds: Positive: Present Musculoskeletal: Positive: Strength/ROM Intact, Pain @ - Rt inferior pectoralis border and paraspinal mm in thoracic region are TTP Neurological: Positive: Normal, Sensory/Motor Intact, Alert, Oriented to Person Place, Time, CN Intact II-III Psychiatric: Positive: Normal - concerned but calm, polite, pleasant Diagnostics - Vital Signs Vital Signs Temp Pulse Resp BP Pulse Ox 10/19/18 09:49 97.5 F 70 18 126/74 95 - Laboratory Lab Results: Lab Results 10/19/18 Range/Units 10:01 WBC 11.7 H (3.5-10.8) 10^3/ul RBC 5.18 (4.00-5.40) 10^6/ul Hgb 15.9 (14.0-18.0) g/dl Hct 48 (42-52) % MCV 92 (80-94) fL MCH 31 (27-31) pg MCHC 33 (31-36) g/dl RDW 14 (10.5-15) % Plt Count 284 (150-450) 10^3/ul MPV 7.0 L (7.4-10.4) fL Neut % (Auto) 66.7 % Lymph % (Auto) 21.1 % Gem % (Auto) 8.5 % Eos % (Auto) 3.1 % Baso % (Auto) 0.6 % Absolute Neuts (auto) 7.8 H (1.5-7.7) 10^3/ul Absolute Lymphs (auto) 2.5 (1.0-4.8) 10^3/ul Absolute Monos (auto) 1.0 H (0-0.8) 10^3/ul Absolute Eos (auto) 0.4 (0-0.6) 10^3/ul Absolute Basos (auto) 0.1 (0-0.2) 10^3/ul Absolute Nucleated RBC 0 10^3/ul Nucleated RBC % 0.2 Result Diagrams: 10/19/18 10:01 10/19/18 10:01 Lab Statement: Any lab studies that have been ordered have been reviewed, and results considered in the medical decision making process. Chest Pain Course/Dx - Course Course Of Treatment: Pt presents w/ Rt sided chest pain x 5 days - initially felt this was SHAUNA but wanted to come in and get checked out as he has h/o MD. Last stress test > 1 year ago - follows w/ cardiology anually. Labs, ECG, CXR all w/o acute findings. Trops (-) x 2 - no cardiac sx while here and vitals stable. Discussed importance of smoking cessation and pt in contemplative state of quitting. Agrees to f/u w/ PCP and is now aware of multiple techniques adn approaches to quitting. Also strongly recommended outpt stress test LETY - he will call cardiology today to arrange as he is established here at [facility]. Discussed continuing meds and to retunr to ED if danger s/sx present. Pt agrees w/ plan. Suspect SHAUNA soreness from recnt activities - provided with supportive care for pain relief as well - Diagnoses Provider Diagnoses: Right-sided chest wall pain Discharge - Sign-Out/Discharge Documenting (check all that apply): Patient Departure - Discharge Plan Condition: Stable Disposition: HOME Patient Education Materials: Chest Pain (ED) Referrals: Lainey aHrrington MD [Primary Care Provider] - Phil Hoskins MD [Medical Doctor] - Additional Instructions: Continue medications as directed Follow-up with cardiology this week - call today to schedule stress test Avoid stressful activities, exertion, stimulants until seen by cardiology *If chest pain returns or other danger signs/symptoms present (ie. shortness of breath, nausea, vomiting, sweating, arm/jaw pain, fatigue, etc) return to the ED To alleviate muscle pain, try heat in the morning with gentle streches and ice after use. You may also take acetaminophen as needed for pain. - Billing Disposition and Condition Condition: STABLE Disposition: Home
[2018-10-19 10:23] LABS: Activated Partial Thrombo Time 31.3 seconds (26.0-36.3); INR 0.88 (0.77-1.02)
[2018-10-19 10:35] LABS: Albumin 4.3 g/dL (3.2-5.2); Albumin/Globulin Ratio 1.6 (1-3); BUN/Creatinine Ratio 20.6 (8-20); Calcium 9.4 mg/dL (8.6-10.3); EGFR Non-African American 123.4 (>60); Globulin 2.7 g/dL (2-4); Potassium 4.1 mmol/L (3.5-5.0); Total Bilirubin 0.5 mg/dL (0.2-1.0)
[2018-10-19 10:39] LABS: Myoglobin 25.7 ng/mL (17.4-105.7)
[2018-10-19 10:59] LABS: TSH (Thyroid Stimulating Horm) 2.43 mcIU/mL (0.34-5.60)
[2018-10-19 14:41] VITALS: BP 110/82
== END 2018-10-19 14:52 | disposition home or self-care (01) ==
LOC: ED 09:40
DX: R07.89 Other chest pain (principal); I25.10 Atherosclerotic heart disease of native coronary artery without angina pectoris; Z95.5 Presence of coronary angioplasty implant and graft; Z79.01 Long term (current) use of anticoagulants; Z82.49 Family history of ischemic heart disease and other diseases of the circulatory system; F17.290 Nicotine dependence, other tobacco product, uncomplicated
CPT/HCPCS: 36415; 71045; 80053; 82550; 82553; 83605; 83874; 83880; 84436; 84443; 84484; 85025; 85379; 85610; 85730; 93005; 99283

== ENCOUNTER 2019-08-11 18:36 | Emergency (ER) | payer OTHER ==
--- OUTSIDE RECORDS SUMMARY | 2019-08-11 18:43 | XMS REPORT | Continuity of Care Document ---
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 Problems Active Problems Provider Date Acute myocardial infarction of Jaya Smith MD, [facility], Onset: 02/04/2017 inferolateral wall [facility] Old myocardial infarction Jaya Smith MD, [facility], Onset: 10/28/2017 [facility] Not interested in stopping smoking Jaya Smith MD, [facility], Onset: 2017 [facility] Social History Type Date Description Comments Sex Unknown ETOH Use Denies alcohol use Recreational Drug Use Denies Drug Use Tobacco Use Start: Unknown End: Patient is a former smoker Unknown Smoking Status Reviewed: 08/03/19 Patient is a former smoker Exercise Type/Frequency Exercises regularly Allergies, Adverse Reactions, Alerts Description No Known Drug Allergies Medications Active Medications SIG Qnty Indications Ordering Provider Date Lisinopril 1 by mouth 90tabs I50.22 Jaya Smith, 02/04/2017 20mg Tablets every day HAILEY TEE, [facility] Atorvastatin Calcium 1/2 by mouth 90tabs Deb Hart, 12/31/2016 80mg every day M.D. Tablets Metoprolol Succinate ER 1 by mouth 90tabs Deb Hart, 12/31/2016 every day M.D. 100mg Tablets ER 24HR Nitroglycerin 1 sl q5mins x3 30tabs Jaya Smith, 12/31/2016 0.4mg Tablets as needed for HAILEY TEE, [facility] Sub chest pain Aspirin Ec 1 by mouth Unknown 81mg Tablets DR every day Spironolactone 1 by mouth Unknown 25mg Tablets every day Furosemide 1 by mouth Unknown 20mg Tablets every day Fluoxetine HCL (PMDD) 1 by mouth Unknown 20mg every day Capsules Carvedilol 1 by mouth Unknown 3.125mg Tablets twice a day Medications Administered in Office Medication SIG Qnty Indications Ordering Provider Date Depomedrol 40MG Fred Browning, 02/19/2010 Injection R.S.A.-O Immunizations Description No Information Available Vital Signs Date Vital Result Comment 08/03/2019 8:18am Height 71 inches 5'11" Weight 213.00 lb Heart Rate 58 /min BP Systolic Sitting 120 mmHg BP Diastolic Sitting 86 mmHg O2 % BldC Oximetry 98 % BMI (Body Mass Index) 29.7 kg/m2 09/05/2018 3:46pm Height 71 inches 5'11" Weight 220.00 lb with shoes Heart Rate 78 /min BP Systolic Sitting 110 mmHg lue reg cuff BP Diastolic Sitting 70 mmHg lue reg cuff BP Systolic Standing 114 mmHg lue reg cuff BP Diastolic Standing 70 mmHg lue reg cuff BMI (Body Mass Index) 30.7 kg/m2 Ejection Fraction 55% echo. 05/18/2017 Procedures Description No Information Available Medical Devices Description No Information Available Encounters Description No Information Available Assessments Date Code Description Provider 08/03/2019 R06.02 Shortness of breath Tia Lea MD 08/03/2019 G47.9 Sleep disorder, unspecified Tia Lea MD 08/03/2019 Z87.891 Personal history of nicotine dependence Tia Lea MD 08/03/2019 Z12.2 Encounter for screening for malignant neoplasm Tia Lea MD of respiratory organs Plan of Treatment Future Appointment(s):09/14/2019 9:00 am - [facility]La MD at [facility]08/03/2019 - Tia Lea MDR06.02 Shortness of breathNew Labs:Alpha 1 Antitrypsin A1a, Ordered: 08/03/19New Orders:PFTW/ Spirometry Vol Pre/Post Bronchdilat Dlco Complete, Ordered: 08/03/19G47.9 Sleep disorder, unspecifiedNew Orders:Sleep Study, Ordered: 08/03/19Z87.891 Personal history of nicotine ubdojovijlD92.2 Encounter for screening for malignant neoplasm of respiratory organsNew Xrays:CT Lung Screening-Low Dose, Ordered: 08/12 Functional Status Description No Information Available Mental Status Description No Information Available Referrals Description No Information Available
--- OUTSIDE RECORDS SUMMARY | 2019-08-11 18:43 | XMS REPORT | Continuity of Care Document ---
:1970 External Reference #:[id number] Author Name Dmitriy Wesley M.D. Address [address] [place] [address] Problems Active Problems Provider Date Essential hypertension Dmitriy Wesley M.D. Onset: 01/19/2019 Social History Type Date Description Comments Sex Unknown ETOH Use Denies alcohol use Tobacco Use Start: Unknown End: Unknown Patient is a former smoker Recreational Drug Use Denies Drug Use Allergies, Adverse Reactions, Alerts Description No Known Drug Allergies Medications Active Medications SIG Qnty Indications Ordering Provider Date Azithromycin 1 by mouth every 7tabs J20.9 Dmitriy Wesley, 06/23/2019 500mg day M.D. Tablets Prednisone 3 tab by mouth 18tabs J20.9 Dmitriy Wesley, 06/23/2019 20mg Tablets daily 3 days, M.D. then 2 tab daily x 3 d , then 1 tab daily 3d Physical Therapy X pain L shoulder M25.512 Dmitriy Wesley, 01/31/2019 6-8 WKS M.D. Aspirin Low Dose take 1 tablet by I25.10 Unknown 81mg mouth once daily Tablets Prasugrel HCL take 1 tablet by I25.10 Unknown 10mg mouth daily Tablets Carvedilol 1 tab by mouth 60tabs I25.10 Unknown 3.125mg twice a Tablets day-cardiology I10 Atorvastatin Calcium 1 by mouth every day 90tabs I25.10 Unknown 80mg Tablets E78.2 Lisinopril take 1 tablet by mouth once I10 Unknown 2.5mg Tablets daily I25.[address] 1 tablet I25.10 Unknown 0.4mg Tablets under the tongue Sub every 5 minutes if needed for chest pain Gabapentin 1 cap by mouth 90caps M15.9 Dmitriy Wesley, 100mg Capsules three times a day M.D. M25.512 I67.89 History Medications Amoxicillin 2 by mouth 40tabs J20.9 Dmitriy Wesley, 06/20/2019 - 500mg twice a day M.D. 06/23/2019 Tablets Immunizations Description No Information Available Vital Signs Date Vital Result Comment 06/23/2019 9:26am BP Systolic 128 mmHg BP Diastolic 88 mmHg Height 72 inches 6'0" Weight 217.00 lb BMI (Body Mass Index) 29.4 kg/m2 Heart Rate 72 /min Body Temperature 96.8 F Respiratory Rate 16 /min 06/20/2019 12:59pm BP Systolic 118 mmHg BP Diastolic 68 mmHg Height 72 inches 6'0" Weight 217.00 lb BMI (Body Mass Index) 29.4 kg/m2 Heart Rate 67 /min Body Temperature 96.3 F Respiratory Rate 16 /min Results Test Date Facility Test Result H/L Range Note CBC With Diff 01/31/2019 [facility] WBC 9.7 10*3/uL (4.1-11.0) [address] (607)- - RBC 5.05 10*6/uL (4.60-6.10) HGB 15.3 g/dL (13.5-18.0) HCT 46.4 % (41.0-53.0) MCV 91.9 fL (80.0-95.0) MCH 30.2 pg (27.0-32.0) MCHC 32.9 g/dL (32.0-36.0) RDW 14.7 % High (10.5-14.5) PLT 264 10*3/uL (150-450) MPV 7.4 fL (7.1-10.7) Neut % 68.7 % (35.0-75.0) Lymph % 21.9 % (16.0-52.0) [place] % 6.4 % (0.0-8.0) Eos % 2.4 % (0.0-5.0) Baso % 0.6 % (0.0-4.0) Neut # 6.6 10*3/uL (1.8-7.7) Lymph # 2.1 10*3/uL (1.2-4.8) [place] # 0.6 10*3/uL (0.0-0.8) Eos # 0.2 10*3/uL (0.0-0.5) Baso # 0.1 10*3/uL (0.0-0.2) CMP 01/31/2019 [facility] Sodium 141 mmol/L (136-145) [address] (022)- - Potassium 3.9 mmol/L (3.6-5.2) Chloride 103 mmol/L (100-108) Co2 29 mmol/L (22-31) Anion Gap 9 mmol/L (7-16) Urea Nitrogen 14 mg/dL (7-24) Creatinine 0.70 mg/dL Low (0.80-1.30) BUN/Creat Ratio 20.0 RATIO (10.0-20.0) Glucose 123 mg/dL High (70-99) Calcium 8.9 mg/dL (8.4-10.2) Total Protein 7.0 g/dL (6.4-8.2) Albumin 4.1 g/dL (3.5-4.6) Globulin 2.9 g/dL (2.7-4.3) Alb/Glob Ratio 1.4 RATIO Alkaline Phosphatase 78 U/L (45-117) Bilirubin,Total 0.6 mg/dL (0.0-1.0) Ast (Sgot) 13 U/L (11-39) Alt (SGPT) 27 U/L (12-78) GFR >60 ml/min/1.73m2 (>59) GFR ( Amer) >60 ml/min/1.73m2 (>59) GFR Interpretation <SEE NOTE> 1 Hemoglobin A1c 01/31/2019 [facility] Hemoglobin A1c @ 5.8 % (4.0-6.0) 2 [address] (949)- - Est Average Glucose 120 mg/dL Laboratory test 01/31/2019 [facility] CRP, Sensitive @ 0.9 mg/L 3 finding [address] (615)- - Lipid 01/31/2019 [facility] Cholesterol @ 120 mg/dL (0-200) [address] (061)- - Triglyceride @ 178 mg/dL (30-200) HDL Cholesterol @ 36 mg/dL Low (>40) 4 Chol/HDL Ratio 3.3 RATIO 5 LDL Chol (Calc) 48 mg/dL (<130) 6 Laboratory 01/31/2019 [facility] TSH,Ultrasensitive @ 2.220 (0.360- 4.170) test finding [address] mIU/L (607)- - 1 NORMAL KIDNEY FUNCTION OR MILD DISEASE - GFR >OR= 60 CHRONIC KIDNEY DISEASE - GFR 15 - 59 RENAL FAILURE - GFR <15 Est. GFR calculation based on the MDRD study equation, which assumes a steady state for creatinine. Est. GFR should not be used for medication dosing. 2 Performed using [employer] immunoassay. Care must be taken when interpreting HbA1c results in patients with a hemoglobin variant or decreased erythrocyte lifespan. Values 5.7 - 6.4% suggest prediabetes. Values >=6.5% are diagnostic for diabetes. REFERENCE: DIABETES CARE 2018: 41(S13-S27). 3 RELATIVE RISK CATEGORY AND AVERAGE hs-CRP LEVEL: LOW RISK < 1.0 MG/L AVERAGE RISK 1.0 to 3.0 MG/L HIGH RISK > 3.0 MG/L 4 PER NCEP ATP III GUIDELINES: RESULTS LOWER THAN 40 MG/DL ARE SUGGESTIVE OF INCREASED RISK FOR CORONARY ARTERY DISEASE. RESULTS > OR = TO 60 MG/DL ARE CONSIDERED A NEGATIVE RISK FACTOR. 5 INTERPRETATION OF CHOL-HDL RATIO CHD RISK FEMALE MALE VERY HIGH >8.3 >14.3 HIGH 5.6- 8.3 6.7- 14.3 AVERAGE 3.7- 5.6 4.0- 6.7 BELOW AVERAGE 2.5- 3.7 2.7- 4.0 PROTECTED <2.5 <2.7 6 PER NCEP ATP III GUIDELINES: OPTIMAL < 100 NEAR OPTIMAL 100 - 129 BORDERLINE HIGH 130 - 159 HIGH 160 - 189 VERY HIGH > 189 Procedures Date Code Description Status 06/20/2019 31556 Spirometry Completed 06/20/2019 06103 Tympanometry Completed 01/19/2019 43246 EKG Completed Medical Devices Description No Information Available Encounters Type Date Location Provider Dx Diagnosis Office Visit 06/23/2019 [facility] Dmitriy Wesley, I25.10 [facility] M.D. disease of [place] coronary artery w/o ang pctrs E78.2 Mixed hyperlipidemia I10 Essential (primary) hypertension E11.65 Type 2 diabetes mellitus with hyperglycemia M25.512 Pain in left shoulder M15.9 Polyosteoarthritis, unspecified I67.89 Other cerebrovascular disease J30.9 Allergic rhinitis, unspecified L20.9 Atopic dermatitis, unspecified N40.1 Benign prostatic hyperplasia with lower urinary tract symp J44.9 Chronic obstructive pulmonary disease, unspecified F17.211 Nicotine dependence, cigarettes, in remission R26.81 Unsteadiness on feet F70 Mild intellectual disabilities H54.7 Unspecified visual loss M75.112 Incomplete rotatr-cuff tear/ruptr of l shoulder, not trauma J20.9 Acute bronchitis, unspecified R09.81 Nasal congestion R05 Cough H92.03 Otalgia, bilateral Office Visit 06/20/2019 1:00p [facility] Dmitriy Wesley, I25.10 [facility] [place] disease of [place] coronary artery w/o ang pctrs E78.2 Mixed hyperlipidemia I10 Essential (primary) hypertension E11.65 Type 2 diabetes mellitus with hyperglycemia M25.512 Pain in left shoulder M15.9 Polyosteoarthritis, unspecified I67.89 Other cerebrovascular disease J30.9 Allergic rhinitis, unspecified L20.9 Atopic dermatitis, unspecified N40.1 Benign prostatic hyperplasia with lower urinary tract symp J44.9 Chronic obstructive pulmonary disease, unspecified F17.211 Nicotine dependence, cigarettes, in remission R26.81 Unsteadiness on feet F70 Mild intellectual disabilities H54.7 Unspecified visual loss M75.112 Incomplete rotatr-cuff tear/ruptr of l shoulder, not trauma J20.9 Acute bronchitis, unspecified R09.81 Nasal congestion R05 Cough H92.03 Otalgia, bilateral Office Visit 02/21/2019 8:45a [facility] Dmitriy Wesley, [facility]25.10 [facility] [place] disease of [place] coronary artery w/o ang pctrs E78.2 Mixed hyperlipidemia I10 Essential (primary) hypertension E11.65 Type 2 diabetes mellitus with hyperglycemia M25.512 Pain in left shoulder M15.9 Polyosteoarthritis, unspecified I67.89 Other cerebrovascular disease J30.9 Allergic rhinitis, unspecified L20.9 Atopic dermatitis, unspecified N40.1 Benign prostatic hyperplasia with lower urinary tract symp J44.9 Chronic obstructive pulmonary disease, unspecified F17.211 Nicotine dependence, cigarettes, in remission R26.81 Unsteadiness on feet F70 Mild intellectual disabilities H54.7 Unspecified visual loss M75.112 Incomplete rotatr-cuff tear/ruptr of l shoulder, not trauma Office Visit 01/31/2019 8:30a [facility] Dmitriy Wesley I25.10 [facility] [place] disease of [place] coronary artery w/o [facility] pctrs E78.2 Mixed hyperlipidemia I10 Essential (primary) hypertension E11.65 Type 2 diabetes mellitus with hyperglycemia M25.512 Pain in left shoulder M15.9 Polyosteoarthritis, unspecified I67.89 Other cerebrovascular disease J30.9 Allergic rhinitis, unspecified L20.9 Atopic dermatitis, unspecified N40.1 Benign prostatic hyperplasia with lower urinary tract symp J44.9 Chronic obstructive pulmonary disease, unspecified F17.211 Nicotine dependence, cigarettes, in remission R26.81 Unsteadiness on feet F70 Mild intellectual disabilities H54.7 Unspecified visual loss Office Visit 01/19/2019 10:00a [facility] Dmitriy Wesley Z00.01 Encounter for [facility] exam w abnormal findings I25.10 [facility] disease of [place] coronary artery w/o [facility] pctrs E78.2 Mixed hyperlipidemia I10 Essential (primary) hypertension E11.65 Type 2 diabetes mellitus with hyperglycemia M25.512 Pain in left shoulder M15.9 Polyosteoarthritis, unspecified I67.89 Other cerebrovascular disease J30.9 Allergic rhinitis, unspecified L20.9 Atopic dermatitis, unspecified N40.1 Benign prostatic hyperplasia with lower urinary tract symp J44.9 Chronic obstructive pulmonary disease, unspecified F17.211 Nicotine dependence, cigarettes, in remission R26.81 Unsteadiness on feet F70 Mild intellectual disabilities H54.7 Unspecified visual loss Assessments Date Code Description Provider 06/23/2019 I25.10 Atherosclerotic heart disease of [place] Dmitriy Wesley M.D. coronary artery with 06/23/2019 E78.2 Mixed hyperlipidemia Dmitriy Wesley M.D. 06/23/2019 I10 Essential (primary) hypertension Dmitriy Wesley M.D. 06/23/2019 E11.65 Type 2 diabetes mellitus with hyperglycemia Dmitriy Wesley M.D. 06/23/2019 M25.512 Pain in left shoulder Dmitriy Wesley M.D. 06/23/2019 M15.9 Polyosteoarthritis, unspecified Dmitriy Wesley M.D. 06/23/2019 I67.89 Other cerebrovascular disease Dmitriy Wesley M.D. 06/23/2019 J30.9 Allergic rhinitis, unspecified Dmitriy Wesley M.D. 06/23/2019 L20.9 Atopic dermatitis, unspecified Dmitriy Wesley M.D. 06/23/2019 N40.1 Benign prostatic hyperplasia with lower Dmitriy Wesley M.D. urinary tract sympto 06/23/2019 J44.9 Chronic obstructive pulmonary disease, Dmitriy Wesley M.D. unspecified 06/23/2019 F17.211 Nicotine dependence, cigarettes, in Dmitriy Wesley M.D. remission 06/23/2019 R26.81 Unsteadiness on feet Dmitriy Wesley M.D. 06/23/2019 F70 Mild intellectual disabilities Dmitriy Wesley M.D. 06/23/2019 H54.7 Unspecified visual loss Dmitriy Wesley M.D. 06/23/2019 M75.112 Incomplete rotator cuff tear or rupture of Dmitriy Wesley M.D. left shoulder, no 06/23/2019 J20.9 Acute bronchitis, unspecified Dmitriy Wesley M.D. 06/23/2019 R09.81 Nasal congestion Dmitriy Wesley M.D. 06/23/2019 R05 Cough Dmitriy Wesley M.D. 06/23/2019 H92.03 Otalgia, bilateral Dmitriy Wesley M.D. 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 coronary artery with 06/20/2019 E78.2 Mixed hyperlipidemia Dmitriy Wesley M.D. 06/20/2019 I10 Essential (primary) hypertension Dmitriy Wesley M.D. 06/20/2019 E11.65 Type 2 diabetes mellitus with hyperglycemia Dmitriy Wesley M.D. 06/20/2019 M25.512 Pain in left shoulder Dmitriy Wesley M.D. 06/20/2019 M15.9 Polyosteoarthritis, unspecified Dmitriy Wesley M.D. 06/20/2019 I67.89 Other cerebrovascular disease Dmitriy Wesley M.D. 06/20/2019 J30.9 Allergic rhinitis, unspecified Dmitriy Wesley M.D. 06/20/2019 L20.9 Atopic dermatitis, unspecified Dmitriy Wesley M.D. 06/20/2019 N40.1 Benign prostatic hyperplasia with lower Dmitriy Wesley M.D. urinary tract sympto 06/20/2019 J44.9 Chronic obstructive pulmonary disease, Dmitriy Wesley M.D. unspecified 06/20/2019 F17.211 Nicotine dependence, cigarettes, in Dmitriy Wesley M.D. remission 06/20/2019 R26.81 Unsteadiness on feet Dmitriy Wesley M.D. 06/20/2019 F70 Mild intellectual disabilities Dmitriy Wesley M.D. 06/20/2019 H54.7 Unspecified visual loss Dmitriy Wesley M.D. 06/20/2019 M75.112 Incomplete rotator cuff tear or rupture of Dmitriy Wesley M.D. left shoulder, no 06/20/2019 J20.9 Acute bronchitis, unspecified Dmitriy Wesley M.D. 06/20/2019 R09.81 Nasal congestion Dmitriy Wesley M.D. 06/20/2019 R05 Cough Dmitriy Wesley M.D. 06/20/2019 H92.03 Otalgia, bilateral Dmitriy Wesley M.D. 02/21/2019 I25.10 Atherosclerotic heart disease of [place] Dmitriy Wesley M.D. coronary artery with 02/21/2019 E78.2 Mixed hyperlipidemia Dmitriy Wesley M.D. 02/21/2019 I10 Essential (primary) hypertension Dmitriy Wesley M.D. 02/21/2019 E11.65 Type 2 diabetes mellitus with hyperglycemia Dmitriy Wesley M.D. 02/21/2019 M25.512 Pain in left shoulder Dmitriy Wesley M.D. 02/21/2019 M15.9 Polyosteoarthritis, unspecified Dmitriy Wesley M.D. 02/21/2019 I67.89 Other cerebrovascular disease Dmitriy Wesley M.D. 02/21/2019 J30.9 Allergic rhinitis, unspecified Dmitriy Wesley M.D. 02/21/2019 L20.9 Atopic dermatitis, unspecified Dmitriy Wesley M.D. 02/21/2019 N40.1 Benign prostatic hyperplasia with lower Dmitriy Wesley M.D. urinary tract sympto 02/21/2019 J44.9 Chronic obstructive pulmonary disease, Dmitriy Wesley M.D. unspecified 02/21/2019 F17.211 Nicotine dependence, cigarettes, in Dmitriy Wesley M.D. remission 02/21/2019 R26.81 Unsteadiness on feet Dmitriy Wesley M.D. 02/21/2019 F70 Mild intellectual disabilities Dmitriy Wesley M.D. 02/21/2019 H54.7 Unspecified visual loss Dmitriy Wesley M.D. 02/21/2019 M75.112 Incomplete rotator cuff tear or rupture of Dmitriy Wesley M.D. left shoulder, no 01/31/2019 I25.10 Atherosclerotic heart disease of [place] Dmitriy Wesley M.D. coronary artery with 01/31/2019 E78.2 Mixed hyperlipidemia Dmitriy Wesley M.D. 01/31/2019 I10 Essential (primary) hypertension Dmitriy Wesley M.D. 01/31/2019 E11.65 Type 2 diabetes mellitus with hyperglycemia Dmitriy Wesley M.D. 01/31/2019 M25.512 Pain in left shoulder Dmitriy Wesley M.D. 01/31/2019 M15.9 Polyosteoarthritis, unspecified Dmitriy Wesley M.D. 01/31/2019 I67.89 Other cerebrovascular disease Dmitriy Wesley M.D. 01/31/2019 J30.9 Allergic rhinitis, unspecified Dmitriy Wesley M.D. 01/31/2019 L20.9 Atopic dermatitis, unspecified Dmitriy Wesley M.D. 01/31/2019 N40.1 Benign prostatic hyperplasia with lower Dmitriy Wesley M.D. urinary tract sympto 01/31/2019 J44.9 Chronic obstructive pulmonary disease, Dmitriy Wesley M.D. unspecified 01/31/2019 F17.211 Nicotine dependence, cigarettes, in Dmitriy Wesley M.D. remission 01/31/2019 R26.81 Unsteadiness on feet Dmitriy Wesley M.D. 01/31/2019 F70 Mild intellectual disabilities Dmitriy Wesley M.D. 01/31/2019 H54.7 Unspecified visual loss Dmitriy Wesley M.D. 01/19/2019 Z00.01 Encounter for general adult medical Dmitriy Wesley M.D. examination with abnorma 01/19/2019 I25.10 Atherosclerotic heart disease of [place] Dmitriy Wesley M.D. coronary artery with 01/19/2019 E78.2 Mixed hyperlipidemia Dmitriy Wesley M.D. 01/19/2019 I10 Essential (primary) hypertension Dmitriy Wesley M.D. 01/19/2019 E11.65 Type 2 diabetes mellitus with hyperglycemia Dmitriy Wesley M.D. 01/19/2019 M25.512 Pain in left shoulder Dmitriy Wesley M.D. 01/19/2019 M15.9 Polyosteoarthritis, unspecified Dmitriy Wesley M.D. 01/19/2019 I67.89 Other cerebrovascular disease Dmitriy Wesley M.D. 01/19/2019 J30.9 Allergic rhinitis, unspecified Dmitriy Wesley M.D. 01/19/2019 L20.9 Atopic dermatitis, unspecified Dmitriy Wesley M.D. 01/19/2019 N40.1 Benign prostatic hyperplasia with lower Dmitriy Wesley M.D. urinary tract sympto 01/19/2019 J44.9 Chronic obstructive pulmonary disease, Dmitriy Wesley M.D. unspecified 01/19/2019 F17.211 Nicotine dependence, cigarettes, in Dmitriy Wesley M.D. remission 01/19/2019 R26.81 Unsteadiness on feet Dmitriy Wesley M.D. 01/19/2019 F70 Mild intellectual disabilities Dmitriy Wesley M.D. 01/19/2019 H54.7 Unspecified visual loss Dmitriy Wesley M.D. Plan of Treatment 06/23/2019 - Dmitriy Wesley M.D.I25.10 Atherosclerotic heart disease of [place] coronary artery withComments:F/U WITH CARDIOLOGY CONTINUE WITH RX AND F/ U LABE78.2 Mixed hyperlipidemiaComments:DIET REVIEWED CONTINUE DIETWT LOSSF/U LAB FBWI10 Essential (primary) hypertensionComments:CHECK BP TIW ( PRN)DIET AND FLUID COUNSELING LOW SODIUM DIETWT LOSSF/U LABE11.65 Type 2 diabetes mellitus with hyperglycemiaComments:DIET REVIEWED CONTINUE DIETWT LOSSFS qAC AND HS PRN F /U FBWM25.512 Pain in left shoulderComments:EXERCISE/HEAT /MESSAGE AVOID HEAVY LIFTINGTYLENOL OR MOTRIN PRNM15.9 Polyosteoarthritis, unspecifiedComments: EXERCISE/HEAT/MESSAGETYLENOL OR MOTRIN PRNAVOID HEAVY LIFTINGWT LOSSI67.89 Other cerebrovascular diseaseComments:STABLE F/U WITH NEUROLOGY PRNJ30.9 Allergic rhinitis, unspecifiedComments:INCREASE PO FLUID USE ANTIHISTAMINE PRN SECOND HAND SMOKING FQZGLDISTG39.9 Atopic dermatitis, unspecifiedComments:SKIN CARE INSTRUCTIONS EUCERIN CREAM OR BABY OIL 2-3 APPLICATION PER DAYUSE MOISTURIZING SOAPAVOID PROLONGED WATER EXPOSUREAVOID USING HOT WATER IN BIBENML60.1 Benign prostatic hyperplasia with lower urinary tract symptoComments :OWWYXCEK68.9 Chronic obstructive pulmonary disease, unspecifiedComments: INCREASE PO UCSSGDOFGR82.211 Nicotine dependence, cigarettes, in remissionComments:ENCOURAGED TO CONTINUE WITH SMOKING PXDUMUEDWX18.81 Unsteadiness on feetComments:SAFETY CLEAR PATH @ HOMEAVOID USE OF LOOSE RUGSUSE CANE /WALKER NEEDEDPROVIDE ADEQUATE LIGHT @ HOMEUSE WELL FITTED SHOESCONSIDER USE OF REMOTE CALLING DEVICEARRANGE FOR REGURAL CHECK UP BY FAMILY [id number] Mild intellectual disabilitiesComments:GUARDIANSHIP COUNCELLING NBUVGVJ33.7 Unspecified visual lossComments:F/U BRANDIN PEGXUSOYTTSJBF46.112 Incomplete rotator cuff tear or rupture of left shoulder, noComments:EXERCISE/HEAT/MESSAGE TYLENOL OR MOTRIN PRNAVOID HEAVY LIFTING ELEVATE PRN WILL DEFER ORTHO CONSULTTO JPXKKFESDW51.9 Acute bronchitis, unspecifiedNew Medication:Azithromycin 500 mg - 1 by mouth every dayPrednisone 20 mg - 3 tab by mouth daily 3 days, then 2 tab daily x 3 d , then 1 tab daily 3dComments:INCREASE PO RPFLUXSUYN23.81 Nasal ucymbflpxqC82 YbdoyK92.03 Otalgia, bilateral Functional Status Description No Information Available Mental Status Description No Information Available Referrals Description No Information Available
[2019-08-11] MEDS ORDERED: Albuterol/Ipratropium NEB.SOL* Albuterol 2.5 MG/Ipratropium 0.5 MG 3 ML INH ONE ×2 (19:05→20:14)
[2019-08-11 20:53] VITALS: BP 120/48
--- NOTE | 2019-08-11 21:02 | UC ---
Respiratory Complaint HPI - HPI Summary HPI Summary: Mr. Fernandez presents C/O SOB and wheezing.. He was a smoker. 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 He subsequently was hospitalized about 6 weeks ago for CHF. He has been having episodes of SOB subsequently and was referred to a medicare contact specialist. She has given him a rescue inhaler, ordered an outpatient CT of the chest and has plans for sleep studies. In the last few days he has been using the rescue inhaler a lot and feeling fatigued. He denies chest pain or leg swelling. 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 Hx From Patient Unobtainable Due To: Altered Mental Status - Somewhat limited secondary to anoxic injury Pain Intensity: 97 - Allergies/Home Medications Allergies/Adverse Reactions: Allergies Allergy/AdvReac Type Severity Reaction Status Date / Time No Known Allergies Allergy Verified 08/11/19 18:39 Home Medications: Home Medications Aspirin EC TAB* [Ecotrin EC Low Dose 81 MG*] 81 mg PO QAM 08/11/19 [History Confirmed 08/11/19] Carvedilol TAB* [Coreg TAB*] 3.125 mg PO BID 08/11/19 [History Confirmed ] Clopidogrel TAB* [Plavix TAB*] 75 mg PO QAM 08/11/19 [History Confirmed 08/11/19 ] FLUoxetine CAP* [PROzac CAP*] 20 mg PO QAM 08/11/19 [History Confirmed 08/11/19] Furosemide TAB* [Lasix TAB*] 40 mg PO QAM 08/11/19 [History Confirmed 08/11/19] Sacubitril/Valsartan [Entresto 24 mg-26 mg Tablet] 1 each PO BID 08/11/19 [ History Confirmed 08/11/19] Spironolactone TAB* [Aldactone TAB*] 25 mg PO QAM 08/11/19 [History Confirmed ] Tiotropium [place] [Spiriva Respimat] 2.5 mcg IN QAM 08/11/19 [History Confirmed 08/11/19] PMH/Surg Hx/FS Hx/Imm Hx Cardiovascular History: Cardiac Disease, Hypertension, Congestive Heart Failure Respiratory History: Other - No diagnosis at this time Neurological History: Other - Anoxic injury Psychological History: Other Other History Of: Anticoagulant Therapy - Surgical History Surgical History: Yes Surgery Procedure, Year, and Place: Coronary Angioplasty and Stent LAD s/p STEMI , 2019, [place]; Coronary Stents s/p STEMI, 2017, [place]; Right Knee Arthroscopy, 1983 - Family History Known Family History: Positive: Cardiac Disease - family cardiac in 50's - Social History Alcohol Use: None Substance Use Type: None Smoking Status (MU): Former Smoker Type: Cigarettes, Cigars Length of Time of Smoking/Using Tobacco: 1 PPD x 15 Years then 1 Pack/ Cigarellos Daily x 20 Years When Did the Patient Quit Smoking/Using Tobacco: 10/2018 Household Exposure Type: Cigars - Immunization History Most Recent Influenza Vaccination: never Most Recent Tetanus Shot: 2012 Most Recent Pneumonia Vaccination: never Review of Systems All Other Systems Reviewed And Are Negative: Yes Constitutional: Positive: Fatigue Skin: Positive: Negative Eyes: Positive: Negative ENT: Positive: Negative Respiratory: Positive: Shortness Of Breath Cardiovascular: Positive: Negative. Negative: Palpitations, Chest Pain Gastrointestinal: Positive: Negative Motor: Positive: Negative Neurovascular: Positive: Negative Musculoskeletal: Positive: Negative Physical Exam - Summary Physical Exam Summary: He is non-toxic in appearance with stable vitals although he clearly has some respiratory distress with audible wheezes. He is not using accessory muscles or tachypneic. Triage Information Reviewed: Yes Appearance: Well-Appearing Vital Signs: Initial Vital Signs Temp 98 F 08/11/19 18:38 Pulse 72 08/11/19 18:38 Resp 18 08/11/19 18:38 BP 124/79 08/11/19 18:38 Pulse Ox 92 08/11/19 18:38 Vital Signs Reviewed: Yes Eyes: Positive: Conjunctiva Clear ENT Exam: Normal Neck exam: Normal Respiratory: Positive: Wheezing - Diffuse expiratory wheezes. No crackles or rales Cardiovascular Exam: Normal - No JVD Abdominal Exam: Normal Musculoskeletal Exam: Normal Neurological Exam: Normal Psychological Exam: Normal Diagnostics - Radiology CXR Summary of Radiographic Findings: No Acute Process Respiratory Course/Dx - Course Course Of Treatment: He improved dramatically with a couple DuoNebs. He is CTA with stable vitals and feels much improved. Clinically there is no evidence that he has any pulmonary edema leading to this bronchospasm and the fact that the medicare contact specialist gave him a rescue inhaler leads me to conclude that he has a primary lung problem that is still being worked up. He is improved and stable for discharge. I will give him a neb and recommend follow up with the pulmonolgist next week and 911 if he gets SOB again. - Differential Dx/Diagnosis Provider Diagnosis: Bronchospasm Discharge ED - Sign-Out/Discharge Documenting (check all that apply): Patient Departure All imaging exams completed and their final reports reviewed: Yes - Discharge Plan Condition: Stable Disposition: HOME Referrals: Dmitriy Wesley MD [Primary Care Provider] - Additional Instructions: Pleas go immediately to the ED or call 911 if you get SOB again and the medication does not immediately relieve it. Please continue with the medicare contact specialist for further workup and diagnosis. - Billing Disposition and Condition Condition: STABLE Disposition: Home
== END 2019-08-11 21:20 | disposition home or self-care (01) ==
LOC: UCCORT 18:36
DX: J98.01 Acute bronchospasm (principal); I11.0 Hypertensive heart disease with heart failure; I50.9 Heart failure, unspecified; Z95.5 Presence of coronary angioplasty implant and graft; Z79.899 Other long term (current) drug therapy; Z87.891 Personal history of nicotine dependence; Z79.82 Long term (current) use of aspirin
CPT/HCPCS: 71046; 99213; A9270-GY; G0463

== ENCOUNTER 2024-04-11 08:11 | Observation (INO) ==
[2024-04-11] MEDS ORDERED: Rocuronium 50 mg VIAL 10 mg/ml 5 ml VIAL (50 mg) ONE (08:25)
[2024-04-11] MEDS ORDERED: Midazolam 2 mg/2 ml VIAL 1 mg/ml 2 ml VIAL (2 mg) ONE ×2 (08:25→09:43)
[2024-04-11] MEDS ORDERED: ceFAZolin 2 GM PREMIX 2 GM/50 ML BAG ONE (08:56)
[2024-04-11 09:02] LABS: Rapid COVID-19 Molecular Undetected (Undetected)
[2024-04-11] MEDS ORDERED: ROPIVACAINE 5 MG/ML 30 ML BTL (0.5%) ONE ×2 (09:43→09:52)
[2024-04-11] MEDS ORDERED: Ondansetron 4 mg VIAL 2 MG/ML 2 ml VIAL ONE ×2 (11:02→14:58)
[2024-04-11] MEDS ORDERED: Dexamethasone IV 4 MG/ML VIAL 1 ml VIAL ONE ×2 (11:02→14:58)
[2024-04-11] MEDS ORDERED: Propofol 10 MG/ML 20 ML BTL ONE ×5 (11:27→15:40)
[2024-04-11] MEDS ORDERED: fentaNYL 100 mcg/2 ml 50 MCG/ML VIAL ONE (12:09)
[2024-04-11] MEDS ORDERED: Lidocaine 2% PF 5 ML VIAL ONE (12:10)
[2024-04-11] MEDS ORDERED: Ondansetron 4 mg VIAL 2 MG/ML 2 ml VIAL IV PRN (13:26)
[2024-04-11] MEDS ORDERED: Lactulose 30 ml UDC PO PRN (13:26)
[2024-04-11] MEDS ORDERED: Morphine 2 MG/ML SYRINGE IV PRN (13:26)
[2024-04-11] MEDS ORDERED: Calcium Carb (TUMS) 500 mg CHEW TAB PO PRN (13:26)
[2024-04-11] MEDS ORDERED: Ondansetron ODT 4 mg TAB 4 MG TAB PO PRN (13:26)
[2024-04-11] MEDS ORDERED: Magnesium Hydroxide LIQ 30 ML UDC PO PRN (13:26)
[2024-04-11] MEDS ORDERED: Glycopyrrolate IV 0.2 MG/ML 1 ML VIAL ONE (15:18)
[2024-04-11] MEDS ORDERED: Acetaminophen IV 1 GM/100ML 0 MG/0 ML BAG IV ONE (15:24)
[2024-04-11] MEDS ORDERED: HYDROmorphone 0.5 MG/0.5 ML SYRINGE ONE ×2 (15:24→15:25)
[2024-04-11] MEDS: Lactated Ringers 1000 ml BAG 1,000 ML IV SCH ×2 (16:43→23:57)
[2024-04-11] MEDS: Mometasone 220 MCG MDI INH SCH (19:11)
[2024-04-11] MEDS: ceFAZolin 2 GM in NS PREMIX 2 GM/100 ML BAG IVPB SCH (21:47)
[2024-04-11] MEDS: Magnesium Hydroxide LIQ 30 ML UDC PO SCH (21:53)
[2024-04-12 05:52] LABS: Hematocrit 35.8 % (38-53); Hemoglobin 11.9 g/dL (13.2-16.3); Mean Platelet Volume 6.9 fL (7.5-11.2); Platelet Count 233 10^3/uL (150-450)
[2024-04-12 06:09] LABS: Calcium 8.1 mg/dL (8.6-10.3); Creatinine, Serum 0.78 mg/dL (0.67-1.17); Potassium 3.8 mmol/L (3.5-5.0); eGFR CKD-EPI 104.7 (>60)
[2024-04-12] MEDS: Aspirin EC 81 mg TAB.EC (enteric coated) PO SCH (07:32)
[2024-04-12] MEDS: Vitamin THERAPEUTIC TAB PO SCH (07:32)
[2024-04-12 11:02] VITALS: BP 99/59
== END 2024-04-12 12:50 | disposition home or self-care (01) ==
LOC: SSU 08:11 → OR 08:11
PROVIDERS: ADMIT Orthopaedic Surgery Adult Reconstructive Orthopaedic Surgery; ATTEND Orthopaedic Surgery Adult Reconstructive Orthopaedic Surgery